=== PATIENT | male | born 1945 | race Caucasian/White ===

== ENCOUNTER 2018-08-16 07:40 | Inpatient (IN) ==
[2018-08-09 15:35] LABS: Appearance,Urine CLEAR; Bilirubin,Urine NEG (NEG); Color,Urine AMBER; Glucose,Urine (UA) NEGATIVE (NEG); Leukocyte Esterase,Urine NEG /uL (NEG); Protein,Urine NEG (NEG); Specific Gravity,Urine 1.028 (1.000-1.035); Urine Blood NEG mg/dL (<0.03); Urobilinogen,Urine NEG (NEG)
[2018-08-09 16:13] LABS: Blood Urea Nitrogen 15 mg/dl (8-23)
[2018-08-09 16:14] LABS: Basophils # (Auto) 0.1 K/mcL (0.0-0.3); Basophils % (Auto) 1.1 % (0.0-2.0); Eosinophils # (Auto) 0.2 K/mcL (0.0-0.7); Eosinophils % (Auto) 4.1 % (0.0-7.0); Granulocytes % (Auto) 56.8 % (38.0-78.0); Lymphocytes # (Auto) 1.4 K/mcL (1.5-4.8); Lymphocytes % (Auto) 26.6 % (15.5-49.0); Mean Cell Volume 94.2 fL (80.0-100.0); Mean Corpuscular HGB Conc 34.5 g/dL (31.0-36.0); Monocytes # (Auto) 0.6 K/mcL (0.1-0.9); Monocytes % (Auto) 11.4 % (1.0-12.0); Platelet Count 128 K/mcL (140-440); RBC 4.64 M/mcL (4.50-5.90); Red Cell Distribution Width 14.2 % (11.5-14.5)
[~2018-08-16 07:40] MED LIST: 0.9 % SODIUM CHLORIDE 9 ML, KETOROLAC 30 MG, ROPIVACAINE HCL/PF 49.5 ML, EPINEPHrine 0.... IJ SCH; CELECOXIB 200 MG CAPSULE PO SCH; PREGABALIN 75 MG CAPSULE PO SCH; ceFAZolin 2 GM in DEXTROSE 5% IN WATER 50 ML IV SCH; oxyCODONE 10 MG TAB.ER.12H PO SCH
[2018-08-16] MEDS ORDERED: GENTAMICIN SULFATE 800 MG/20 ML VIAL IR ONE (11:21)
[2018-08-16] MEDS ORDERED: KETAMINE 100 MG/ML ML IV ONE (11:45)
[2018-08-16] MEDS ORDERED: ePHEDrine 50 MG/ML AMPUL IV ONE (11:45)
[2018-08-16] MEDS ORDERED: PROPOFOL 200 MG/20 ML VIAL IV ONE (11:45)
[2018-08-16] MEDS ORDERED: GLYCOPYRROLATE 0.2 MG/ML VIAL IV ONE (11:45)
[2018-08-16] MEDS ORDERED: MIDAZOLAM 2 MG/2 ML VIAL IV ONE (11:45)
[2018-08-16] MEDS ORDERED: ONDANSETRON 4 MG/2 ML VIAL IV ONE (11:45)
[2018-08-16] MEDS ORDERED: TRANEXAMIC ACID 1,000 MG/10 ML VIAL IV ONE ×2 (11:45→13:30)
[2018-08-16] MEDS ORDERED: PHENYLEPHRINE 10 MG/ML VIAL IV ONE (11:45)
[2018-08-16] MEDS ORDERED: LIDOCAINE HCL/PF 100 MG/5 ML SYRINGE IV ONE (11:45)
[2018-08-16] MEDS ORDERED: ROPIVACAINE HCL/PF 30 ML VIAL IJ ONE (11:45)
[2018-08-16] MEDS ORDERED: MEPERIDINE 25 MG/ML SYRINGE IV PRN (13:28)
[2018-08-16] MEDS ORDERED: fentaNYL 100 MCG/2 ML VIAL IV PRN (13:28)
[2018-08-16] MEDS ORDERED: ONDANSETRON 4 MG/2 ML VIAL IV PRN ×2 (13:28→13:30)
[2018-08-16] MEDS ORDERED: IPRATROPIUM/ALBUTEROL 3 ML AMPUL.NEB NEB PRN (13:28)
[2018-08-16] MEDS ORDERED: ACETAMINOPHEN 1,000 MG/100 ML BOTTLE IV ONE (13:28)
[2018-08-16] MEDS ORDERED: METHOCARBAMOL 1,000 MG/10 ML VIAL IV PRN (13:28)
[2018-08-16] MEDS ORDERED: ePHEDrine 50 MG/ML AMPUL IV PRN (13:28)
[2018-08-16] MEDS ORDERED: LACTATED RINGERS 1,000 ML IV SCH (13:30)
[2018-08-16] MEDS ORDERED: BENZOCAINE/MENTHOL 1 LOZENGE PO PRN (13:30)
[2018-08-16] MEDS ORDERED: POLYETHYLENE GLYCOL 3350 17 GM PACKET PO PRN (13:30)
[2018-08-16] MEDS ORDERED: BISACODYL 10 MG SUPP.RECT PR PRN (13:30)
[2018-08-16] MEDS ORDERED: FLEETS ADULT ENEMA PR PRN (13:30)
[2018-08-16] MEDS ORDERED: MAGNESIUM HYDROXIDE 30 ML ORAL.SUSP PO PRN (13:30)
--- NOTE | 2018-08-16 13:37 | Brief Operative Note ---
Date of procedure: 08/16/18 Pre-op diagnosis: djd left knee Post-op diagnosis: same Procedure: L TKR Grafts/Implants: Yes Anesthesia: RADHA Surgeon: Eros Rivera Data Communications Engineer: Nico Young Estimated blood loss (cc): 50 Tourniquet Time (Minutes): 72 Specimens Removed/Pathology: none sent Condition: stable Disposition: PACU
--- NOTE | 2018-08-16 14:13 | Operative Note ---
DATE OF OPERATION: 08/16/2018 PREOPERATIVE DIAGNOSIS: Degenerative joint disease of the left knee. POSTOPERATIVE DIAGNOSIS: Degenerative joint disease of the left knee. OPERATION: Left total knee replacement. SURGEON: Eros Rivera MD SUPERVISOR REAL ESTATE OFFICE: Nico Young PA-C ANESTHESIA: General done by Dr. Torres. TOURNIQUET TIME: 72 minutes. ESTIMATED BLOOD LOSS: 100 mL SUMMARY OF PROCEDURE: General anesthesia was attained. The left leg was prepped and draped. Stab incisions were made in the femur and the tibia for placement of the pins for the arrays. These pins were then drilled unicortically into the tibia and femur. The arrays were placed. Incision was made from the quadriceps to the tibial tubercle. This was taken down sharply through the subcutaneous fat. A subvastus approach was used. A small slit was made in the vastus medialis and then a curvilinear incision in the quadriceps down to the medial retinaculum. This was taken down to the anterior medial tibia. The deep medial collateral ligament was released as the patient was in varus. The menisci were resected. The fat pad was debrided. The ACL was released. The synovium was elevated off the anterior tibia. The checkpoints were placed, one in the femur, one in the tibia. The center of rotation of the hip was then identified on the robotic screen. Then 40 anatomic points were confirmed on the femur and then on the tibia. Six checkpoints on the femur were registered and then 6 on the tibia. Balancing was then done and we got the flexion and extension gaps to be equal as well as the medial and lateral gaps. The robot was then used to make the cuts. They were made in the following order: Proximal tibia; posterior femur; anterior femur; anterior bevel; posterior femur; posterior bevel. Trial of the tibia was then done and the tibia sized to a 5. It was put into external rotation under robotic control. The tibia was then prepared for implantation using the trial by drilling and then broaching. Femur sized to a 5. The femur was lateralized a little bit and then fixed in this position using a pin and then the distal peg holes made. The trial was then done of the insert and we got the best combination of stability with a full range of motion with a 10 mm insert. The patella was everted. A measured resection was done taking 10 mm off down to the size of the patella from a thickness of 24 to 14. A 35 mm insert fit the best after the saw cut. No touch test with the trials in showed a lateral release was not needed. The bone surfaces were thoroughly irrigated. A posterior block was placed with the multimodal injection from the pharmacy. The components were cemented in. Excess cement was removed. The tourniquet was let down. All bleeding points were coagulated. Cement removal was once again confirmed to be complete. The quadriceps was closed in two layers using buried #2 FiberWires in a running locking 0 Maxon. The subcutaneous tissue was closed with buried 2-0 Monocryl. The skin was closed with Dermabond. A sterile compressive dressing was applied. The sponge and needle count was correct. The patient tolerated the procedure well and was taken to the recovery room in stable condition. TJF:sharon Job ID: [id number] Doc ID: [id number] Eros Rivera MD
[2018-08-16] MEDS: 0.9 % SODIUM CHLORIDE 1,000 ML IV SCH (14:51)
[2018-08-16] MEDS: 0.9 % SODIUM CHLORIDE 10 ML SYRINGE IV SCH ×2 (14:53→21:21)
--- NOTE | 2018-08-16 15:55 | XRay Report ---
CLINICAL INFORMATION: Post-op total knee COMPARISON: None. FINDINGS: Total knee prostheses is anatomically aligned. No osseous abnormality. Periarticular gas and subsequently seen as expected. IMPRESSION: Negative Interpreted and Authenticated by: Larry Luciano 08/16/18
[2018-08-16] MEDS: ceFAZolin 1 GM VIAL IV SCH (19:16)
[2018-08-16] MEDS: ASPIRIN 81 MG TAB.CHEW PO SCH (20:46)
[2018-08-16] MEDS: DOCUSATE SODIUM 100 MG CAPSULE PO SCH (20:46)
[2018-08-16] MEDS: HYDROcodone/APAP 10/325MG TABLET PO PRN (21:00)
[2018-08-16] MEDS ORDERED: TERAZOSIN 1 MG CAPSULE PO SCH (21:00)
[2018-08-16] MEDS ORDERED: TERAZOSIN 5 MG CAPSULE PO SCH (21:00)
[2018-08-16] MEDS ORDERED: SENNOSIDES 1 TABLET PO SCH (21:00)
[2018-08-16] MEDS ORDERED: NIACIN 250 MG CAP.SR.12H PO SCH (21:00)
[2018-08-17] MEDS: HYDROcodone/APAP 10/325MG TABLET PO PRN ×3 (03:05→12:25)
[2018-08-17] MEDS: 0.9 % SODIUM CHLORIDE 1,000 ML IV SCH (03:07)
[2018-08-17] MEDS: ceFAZolin 1 GM VIAL IV SCH (03:59)
[2018-08-17] MEDS: 0.9 % SODIUM CHLORIDE 10 ML SYRINGE IV SCH (05:31)
--- NOTE | 2018-08-17 07:23 | Discharge Summary ---
Ortho Discharge - TKA - Patient Instructions Diet: Regular Diet Activity: activity as tolerated Total Knee Protocol: For Total Knee: Start ROM REINA with stationary bike or rocking chair. Work on gaining full extension of knee. Posterior dislocation precautions provided. Hip abductor strengthening and gait training instructions provided. Apply Cryocuff as instructed. Dressing Care: May shower in 2 days Patient Education: Total Knee Replacement (DC) - Follow Up Plan Follow Up Appointments: Nico Young PA-C [Physician Dental Therapist] - 08/29/18 10:00 am Disposition: Home, Self-Care Prognosis: Good Rehab Potential: Good I certify that the patient requires SNF services: No Overall status at discharge: patient is not back to baseline - Orders For Discharge Prescriptions: HYDROcodone/APAP 10/325MG [[place] 10-325Mg] 1 - 2 tab PO Q4HP PRN #50 tab PRN Reason: Pain Level 3-6
--- NOTE | 2018-08-17 07:29 | Discharge Summary ---
Providers - Providers Patient information: Note initiated : 08/17/18 at 7:27 am Service Date, if different from initiated Date: [] Patient: Juan Luis Spicer 72 y/o M admitted on 08/16/18 for Left Total Knee Arthroplasty. Chief Complaint: [] Date of admission: 08/16/18 Discharge date: 08/17/18 Attending physician: Eros Rivera Hospitalization Hospital course: surgery on day of admission ambulating in hallway and on steps POD #1 pain well controlled D/c home on aspirin and hydrocodone Discharge diagnosis: left knee replacement status Exam - Exam Clean and dry: Yes Weight bearing status: full Range of motion: 0-105 Ortho Discharge - TKA - Patient Instructions Diet: Regular Diet Activity: activity as tolerated Total Knee Protocol: For Total Knee: Start ROM REINA with stationary bike or rocking chair. Work on gaining full extension of knee. Posterior dislocation precautions provided. Hip abductor strengthening and gait training instructions provided. Apply Cryocuff as instructed. Patient Education: Total Knee Replacement (DC) - Follow Up Plan Follow Up Appointments: Nico Young PA-C [Physician Dowel Inspector] - 08/29/18 10:00 am Disposition: Home, Self-Care Prognosis: Good Rehab Potential: Good I certify that the patient requires SNF services: No Overall status at discharge: patient is not back to baseline - Orders For Discharge Prescriptions: HYDROcodone/APAP 10/325MG [[place] 10-325Mg] 1 - 2 tab PO Q4HP PRN #50 tab PRN Reason: Pain Level 3-6 Pending Studies Resuscitation Status Full Code Diet Regular Diet Start Kim August 16 Dinner Hydrocodone Bitart/Acetaminophen ([place] 10/325mg) 0 tab PO Q4HP PRN PRN Reason: PAIN LEVEL 3-6 Last Admin: 08/17/18 03:05 Dose: 1 tab Documented by: Admin: 08/16/18 21:00 Dose: 1 tab Documented by: [place] Aspirin (Aspirin) 81 mg PO BID [facility] Last Admin: 08/16/18 20:46 Dose: 81 mg Documented by: [place] Docusate Sodium (Colace) 100 mg PO BID [facility] Last Admin: 08/16/18 20:46 Dose: 100 mg Documented by: [place] Sodium Chloride (Sodium Chloride 0.9%) 1,000 mls @ 75 mls/hr IV .[id number] [facility] Last Admin: 08/17/18 03:07 Dose: 75 mls/hr Documented by: Infusion: 08/17/18 03:07 Dose: 75 mls/hr Documented by: Admin: 08/16/18 14:51 Dose: 75 mls/hr Documented by: ALEJANDRO Niacin (Niacin) 1,000 mg PO [facility] Last Admin: 08/16/18 20:47 Dose: 1,000 mg Documented by: [place] Senna (Senokot) 2 tab PO [facility] Last Admin: 08/16/18 20:47 Dose: 2 tab Documented by: [place] Sodium Chloride (Saline Flush) 10 ml IV Q8 [facility] Last Admin: 08/17/18 05:31 Dose: Not Given Documented by: Admin: 08/16/18 21:21 Dose: Not Given Documented by: Admin: 08/16/18 14:53 Dose: Not Given Documented by: ALEJANDRO Terazosin HCl (Hytrin) 10 mg PO [facility] Last Admin: 08/16/18 20:47 Dose: 10 mg Documented by: [place] Terazosin HCl (Hytrin) 4 mg PO [facility] Last Admin: 08/16/18 20:47 Dose: 4 mg Documented by: [place] Shift Summary 08/17/18 03:43 Shift Summary by Shy Ji a/o x4, up to bathroom with sba and fww, dressing to left knee lesley wrap c/d/i, has used cyrocuff several times, used cpm at 60 for about 2.5 hours, walked to bathroom, refused to walk in darling,medicated x2 with norco 10, pain not higher than a 2 on pain scale, IS at 4000, last bm yesterday, at 0335 he was straight cath r/t bladder scan at 512 cc, return of 550 noted, has hx of prostate problems and takes hytrin,ivf of ns at 75 cc/hr, can s/l with po well and voiding well. Initialized on 08/17/18 03:43 - END OF NOTE
[2018-08-17] MEDS: ASPIRIN 81 MG TAB.CHEW PO SCH (08:43)
[2018-08-17] MEDS: DOCUSATE SODIUM 100 MG CAPSULE PO SCH (08:43)
[2018-08-17] MEDS ORDERED: RED YEAST RICE 1200 MG PO SCH (09:00)
[2018-08-17] MEDS ORDERED: VITAMIN D3 1,000 UNIT TABLET PO SCH (09:00)
== END 2018-08-17 12:40 | disposition home or self-care (01) | DRG 470 ==
LOC: MEDSUR 07:40
PROVIDERS: ADMIT Orthopaedic Surgery Foot and Ankle Surgery; ATTEND Orthopaedic Surgery Foot and Ankle Surgery